=== PATIENT | male | born 1955 | race African-American/Black ===

== ENCOUNTER 2018-05-02 19:56 | Emergency (ER) | payer OTHER ==
[~2018-05-02] VITALS: Ht 185.4 cm; Wt 98.4 kg
[2018-05-02] MEDS ORDERED: COUMADIN7.5 MG PO (20:22)
[2018-05-02] MEDS ORDERED: FLOMAX0.4 MG PO (20:22)
[2018-05-02] MEDS ORDERED: PROSCAR 5MG TABL5 MG PO (20:23)
[2018-05-02] MEDS ORDERED: PRILOSEC 20 MG20 MG PO (20:23)
[2018-05-02] MEDS ORDERED: TUMS PO (20:23)
[2018-05-02] MEDS ORDERED: TRAVATAN Z5 ML OP (20:24)
[2018-05-02] MEDS ORDERED: ABILIFY MAINTE300 M1 IM (20:24)
[2018-05-02] MEDS ORDERED: BENZTROPINE MES1 MG PO (20:26)
[2018-05-02 22:09] VITALS: BP 139/78
== END 2018-05-02 22:14 | disposition home or self-care (01) ==
LOC: ER 19:56
DX: S52.024A Nondisplaced fracture of olecranon process without intraarticular extension of right ulna, initial encounter for closed fracture (principal); F20.9 Schizophrenia, unspecified; I10 Essential (primary) hypertension; Z88.6 Allergy status to analgesic agent; Z88.8 Allergy status to other drugs, medicaments and biological substances; Z86.718 Personal history of other venous thrombosis and embolism; W18.39XA Other fall on same level, initial encounter; Y92.89 Other specified places as the place of occurrence of the external cause; Y93.89 Activity, other specified; Y99.8 Other external cause status